=== PATIENT | female | born 1945 | race Caucasian/White ===

== ENCOUNTER 2017-01-07 12:46 | Emergency (ER) | payer MEDICARE, OTHER ==
[2017-01-07 13:10] VITALS: BP 142/68; PULSE 65; RESP 18; TEMP 97.2
--- NOTE | 2017-01-07 13:47 | ED ---
Chest Pain HPI - General Chief Complaint: Chest Pain Stated Complaint: Fall-side pain Time Seen by Provider: 01/07/17 13:20 Source: patient, RN notes reviewed, old records reviewed Mode of arrival: ambulatory Limitations: no limitations - History of Present Illness Initial Comments: This is a 71-year-old female presenting to the emergency Department chief complaint of right-sided rib pain for the past 3 days. She reports that whenever she sneezes it causes pain. She reports that she slipped in her socks going down 3 stairs 3 days ago. She reports that she initially had some lower back pain but that has been resolved with taking Aleve. She reports that the pain seems to be worse at the past day and her right side of her ribs underneath her breast. She states it's worse with ever having to take a deep breath. She denies any shortness of breath or deep chest pain. She reports it is reproducible pressing over the ribs. She denies any cardiac history. She reports that she is flying home to [place] in 2 days and wants to be safe to go home. - Related Data Previous Rx's Medication Instructions Recorded Acetaminophen-Codeine 300-30mg 1 tab PO Q6H PRN #15 tablet 01/07/17 [Tylenol #3] Allergies Allergy/AdvReac Type Severity Reaction Status Date / Time bacitracin Allergy Rash/Hives Verified 01/07/17 13:10 [From Neosporin ([id number])] benzalkonium chloride Allergy Rash/Hives Verified 01/07/17 13:10 [From Neosporin Rashawn To Go] neomycin Allergy Rash/Hives Verified 01/07/17 13:10 [From Neosporin ([id number])] polymyxin B Allergy Rash/Hives Verified 01/07/17 13:10 [From Neosporin ([id number])] pramoxine Allergy Rash/Hives Verified 01/07/17 13:10 [From Neosporin Rashawn To Go] Review of Systems ROS Statement: Those systems with pertinent positive or pertinent negative responses have been documented in the HPI. ROS Other: All systems not noted in ROS Statement are negative. Past Medical History Past Medical History: Cancer, Fibromyalgia Additional Past Medical History / Comment(s): auto immune sleep apnea raynauds sarcoidosis breast ca History of Any Multi-Drug Resistant Organisms: None Reported Past Surgical History: Breast Surgery Past Psychological History: Depression Smoking Status: Never smoker Past Alcohol Use History: None Reported Past Drug Use History: None Reported General Exam - General Exam Comments Initial Comments: This is a pleasant 71-year-old female. Patient does not appear to be in any acute distress. Limitations: no limitations General appearance: alert, in no apparent distress Head exam: Present: atraumatic, normocephalic, normal inspection Eye exam: Present: normal appearance, PERRL, EOMI. Absent: scleral icterus, conjunctival injection, periorbital swelling ENT exam: Present: normal exam, mucous membranes moist Neck exam: Present: normal inspection. Absent: tenderness, meningismus, lymphadenopathy Respiratory exam: Present: normal lung sounds bilaterally, chest wall tenderness (Sided lower rib and chest wall tenderness.), other (Evidence of mastectomy.). Absent: respiratory distress, wheezes, rales, rhonchi, stridor Cardiovascular Exam: Present: regular rate, normal rhythm, normal heart sounds. Absent: systolic murmur, diastolic murmur, rubs, gallop, clicks GI/Abdominal exam: Present: soft, normal bowel sounds. Absent: distended, tenderness, guarding, rebound, rigid Extremities exam: Present: normal inspection, full ROM, normal capillary refill. Absent: tenderness, pedal edema, joint swelling, calf tenderness Back exam: Present: normal inspection, full ROM Neurological exam: Present: alert, oriented X3, CN II-XII intact Psychiatric exam: Present: normal affect, normal mood Skin exam: Present: warm, dry, intact, normal color. Absent: rash Course Vital Signs 01/07/17 13:07 Temperature 97.2 F L Pulse Rate 65 Respiratory 18 Rate Blood Pressure 142/68 O2 Sat by Pulse 97 Oximetry Chest Pain [facility] 71-year-old female chief complaint of right lower rib pain after falling 3 days ago. She reports that she's been taking naproxen and is given some relief but now notes difficult for her to eat and sneezed without pain. Patient received rib and chest x-ray as well as lumbar spine x-ray. Chest x-ray was reviewed and is negative about suspicious focal airspace opacity, pleural effusion or pneumothorax seen. Cardiac silhouette is within normal limits. Some ectasia of the aortic knob with slight mass effect of the distal trachea is noted. Dedicated imaging of the right ribs showed no displaced fracture. Surgical clips and sutures from right-sided mastectomy are noted. No acute fracture- dislocation seen in lumbar spine. Lumbar spine x-rays reviewed and show no evidence of any acute abdomen. Patient will be discharged with a short course of pain medication. Also recommended to continue using naproxen. Discussed putting heat and ice packs over the area. Also discussed the importance of taking deep breaths as she does not develop a pneumonia due to shallow breathing. Patient agrees to plan will comply. Return parameters were discussed. Disposition Clinical Impression: Rib contusion, Rib pain on right side Disposition: HOME SELF-CARE Condition: Good Instructions: Rib Contusion (ED) Additional Instructions: Patient advised to put ice and heating packs over the area. Take anti- inflammatory medication as directed. Follow-up with your primary care provider when he returned home. Return to the emergency department if any alarming signs or symptoms occur. Prescriptions: Acetaminophen-Codeine 300-30mg [Tylenol #3] 1 tab PO Q6H PRN #15 tablet PRN Reason: Pain Referrals: Nonstaff,Physician [Primary Care Provider] - 1-2 days Time of Disposition: 14:05
--- NOTE | 2017-01-07 13:55 | XR ---
EXAMINATION TYPE: XR lumbar spine 2 or 3V DATE OF EXAM: 01/07/2017 CLINICAL HISTORY: Twisting injury with pain. TECHNIQUE: Frontal and lateral images of the lumbar spine are obtained. COMPARISON: None FINDINGS: There are 5 lumbar type vertebral bodies identified. Osseous structures are somewhat demin eralized which is noted lower radiographic sensitivity. The lumbar spine shows slight dextroconvex s coliotic curvature centered at L3 level without evidence of acute fracture or dislocation. There is s ome straightening of lumbar spine on lateral images. Vertebral body heights are within normal limits. There is mild to moderate disc space narrowing L4-L5 and L5-S1 levels. Multilevel facet arthropathy is seen most prominent in mid to lower lumbar levels. Overlying vascular calcification and cholecyste ctomy clips are noted. IMPRESSION: No acute fracture or dislocation is seen in the lumbar spine. Other findings as noted ab ove.
--- NOTE | 2017-01-07 14:00 | XR ---
EXAMINATION TYPE: XR ribs RT w pa chest x-ray DATE OF EXAM: 01/07/2017 CLINICAL HISTORY: Twisting injury today. Fall injury 2 days ago with chest and right-sided rib pain. TECHNIQUE: Single frontal view of the chest is obtained. A frontal and oblique images of the right-si ded ribs are acquired. COMPARISON: None FINDINGS: There is chronic parenchymal change without suspicious focal air space opacity, pleural ef fusion, or pneumothorax seen. The cardiac silhouette size is within normal limits. Some ectasia of a ortic knob with slight mass effect on the distal trachea is noted. The osseous structures are demine ralized. Dedicated images of the right-sided ribs show no acute displaced fracture. Surgical clips and sutures from right-sided mastectomy are noted. Cholecystectomy clips are seen. IMPRESSION: 1. Chronic parenchymal change without acute process. 2. No acute displaced right-sided rib fractures are evident.
== END 2017-01-07 14:13 | disposition home or self-care (01) ==
LOC: EC 12:46
DX: S20.211A Contusion of right front wall of thorax, initial encounter (principal); M54.5 Low back pain; Z88.1 Allergy status to other antibiotic agents; W01.0XXA Fall on same level from slipping, tripping and stumbling without subsequent striking against object, initial encounter
CPT/HCPCS: 72100; 99284